=== PATIENT | female | born 1965 | race Hispanic/Latino ===

== ENCOUNTER 2018-10-19 18:09 | Observation (INO) | payer BC ==
[~2018-10-19] VITALS: Ht 152.4 cm; Wt 54.4 kg
[2018-10-19] MEDS ORDERED: SODIUM CHLORIDE 0.9% 1000ML 500 ML IV STA (18:54)
[2018-10-19] MEDS ORDERED: ASPIRIN 81 MG CHEW TAB PO ONE ×2 (18:54→19:30)
[2018-10-19] MEDS ORDERED: SODIUM CHLORIDE 0.9% 1000ML 1,000 ML IV STA (18:54)
[2018-10-19] MEDS ORDERED: METOPROLOL TARTRATE 50 MG TAB PO ONE (19:00)
[2018-10-19] MEDS ORDERED: METOPROLOL TARTRATE INJ 1 MG/ML VIAL IV ONE ×2 (19:00)
[2018-10-19 19:09] LABS: BASOPHILS % 0.3 % (0.0-1.0); EOSINOPHILS # (AUTO) 0.1 (0.0-0.4); EOSINOPHILS % 0.5 % (0.0-6.0); HEMATOCRIT 35.7 % (34.2-44.1); HEMOGLOBIN 11.7 g/dL (12.0-16.0); LYMPHOCYTES # (AUTO) 2.6 (1.0-3.2); LYMPHOCYTES % 22.5 % (18.0-39.1); MEAN CORPUSCULAR HEMOGLOBIN 28.7 pg (28-32); MEAN CORPUSCULAR HGB CONC 32.8 g/dL (31-35); MEAN CORPUSCULAR VOLUME 87.7 fL (81-99); MONOCYTES # (AUTO) 0.5 (0.2-0.8); MONOCYTES % 4.5 % (4.4-11.3); NEUTROPHILS # (AUTO) 8.3 (2.1-6.9); NEUTROPHILS % 71.9 % (38.7-80.0); PLATELET COUNT 306 x10e3/uL (140-360); RED BLOOD COUNT 4.07 x10e6/uL (3.6-5.1); RED CELL DISTRIBUTION WIDTH 13.3 % (11.7-14.4)
[2018-10-19 19:11] LABS: BILIRUBIN,URINE NEGATIVE (NEGATIVE); CLARITY,URINE CLEAR (CLEAR); COLOR,URINE YELLOW (YELLOW); KETONES,URINE 1+ (NEGATIVE); LEUKOCYTE ESTERASE ,URINE SMALL (NEGATIVE); NITRITE,URINE NEGATIVE (NEGATIVE); PROTEIN,URINE DIPSTICK NEGATIVE (NEGATIVE); URINE UROBILINOGEN 0.2 mg/dL (0.2 - 1)
[2018-10-19 19:25] LABS: ALANINE AMINOTRANSFERASE 50 IU/L (0-55); ALBUMIN 4.2 g/dL (3.5-5.0); ALBUMIN/GLOBULIN RATIO 1.4 (0.8-2.0); ALKALINE PHOSPHATASE 95 IU/L (40-150); ANION GAP 18.1 mmol/L (8-16); BLOOD UREA NITROGEN 11 mg/dL (7-26); BUN/CREATININE RATIO 14 (6-25); CALCIUM 9.9 mg/dL (8.4-10.2); CARBON DIOXIDE 23 mmol/L (22-29); CHLORIDE 104 mmol/L (98-107); CREATINE KINASE 42 IU/L (29-168); CREATININE, SERUM 0.77 mg/dL (0.57-1.11); EST GLOMERULAR FILTRATION RATE > 60 ML/MIN (60-); GLUCOSE 179 mg/dL (74-118); LIPASE 83 U/L (8-78); MAGNESIUM 1.8 MG/DL (1.3-2.1); POTASSIUM 4.1 mmol/L (3.5-5.1); SODIUM 141 mmol/L (136-145)
[2018-10-19 19:26] LABS: BACTERIA,URINE MODERATE /HPF; EPITHELIAL CELLS,URINE FEW /LPF; RENAL EPITHELIAL CELLS,URINE RARE
[2018-10-19] MEDS ORDERED: ENOXAPARIN SODIUM INJ 100 MG/ML SYR SC SCH (19:30)
[2018-10-19] MEDS ORDERED: ONDANSETRON HCL INJ 2MG/ML 2ML 2 MG/ML VIAL IV PRN (19:30)
[2018-10-19] MEDS ORDERED: SODIUM CHLORIDE FLUSH 10 ML SYR INJ PRN (19:30)
[2018-10-19] MEDS ORDERED: DEXTROSE 50% SYRINGE 50 ML IV PRN (19:30)
[2018-10-19] MEDS ORDERED: MORPHINE SULFATE 2 MG/ML SYR 1ML IV PRN (19:30)
[2018-10-19 19:34] LABS: INR 0.86; PROTHROMBIN TIME 12.2 seconds (11.9-14.5)
[2018-10-19 19:35] LABS: PARTIAL THROMBOPLASTIN TIME 28.4 seconds (23.8-35.5)
[2018-10-19] MEDS: FAMOTIDINE 20 MG/2 ML VIAL IV SCH (20:05)
[2018-10-19] MEDS ORDERED: LIPITOR20 MG PO (20:11)
[2018-10-19] MEDS: METOPROLOL TARTRATE 25 MG TAB PO SCH (20:15)
--- NOTE | 2018-10-19 20:15 | Diagnostic Imaging Report ---
A single frontal view of the chest. HISTORY: Tachycardia COMPARISON: None available. DISCUSSION: Portable technique, limits sensitivity of the exam. Overlying monitoring leads. Tubes/Lines: None Lungs and pleura: The lungs are well inflated. No evidence of a consolidative pneumonia or pulmonary alveolar edema. No definite pleural effusion or pneumothorax is identified. Heart and mediastinum: The cardiomediastinal silhouette appear(s) unremarkable. Bones and soft tissues: Appear unremarkable, given this limited exam. IMPRESSION: No acute radiographic abnormality. Signed by: Dr. Gerardo Chavarria D.O., M.M.M. on 10/19/2018 8:12 PM
--- OUTSIDE RECORDS SUMMARY | 2018-10-19 20:33 | XMS REPORT ---
Author [facility] Address Unknown Phone Unavailable Care Team Providers Care Elevator Repairer Apprentice Name Role Phone BREA SLATER Unavailable Unavailable Problems This patient has no known problems. Allergies, Adverse Reactions, Alerts This patient has no known allergies or adverse reactions. Medications This patient has no known medications. Results Test Description Test Time Test Comments Text Results Atomic Results Result Comments CHEST SINGLE (PORTABLE) 2018-10-19 20:11:00 [place] [address] Patient Name: ALEXIS DUNLAP MR #: [id number] : 1965 Age/Sex: 53/F Req #: [id number] Adm Physician: Ordered by: BREA SLATER MD, MD Report #: [id number] Location: ER Room/Bed: Procedure: [id number] DX/CHEST SINGLE (PORTABLE) Exam Date: 10/19/18 Exam Time: 1924 REPORT STATUS: Signed A single frontal view of the chest. HISTORY: Tachycardia COMPARISON: None available. DISCUSSION: Portable technique, limits sensitivity of the exam. Overlying monitoring leads. Tubes/Lines: None Lungs and pleura: The lungs are well inflated. No evidence of a consolidative pneumonia or pulmonary alveolar edema. No definite pleural effusion or pneumothorax is identified. Heart and mediastinum: The cardiomediastinal silhouette appear(s) unremarkable. Bones and soft tissues: Appear unremarkable, given this limited exam. IMPRESSION: No acute radiographic abnormality. Signed by: Dr. Kristopher Chavarria D.O., M.M.M. on 10/19/2018 8:12 PM Dictated By: KRISTOPHER CHAVARRIA DO 11 Transcribed By: PITO on 10/19/182011 COPY TO: BREA SLATER
[2018-10-19 20:59] VITALS: BP 137/84
[2018-10-19] MEDS: INSULIN REGULAR, HUMAN 100 UNIT/1 ML 3ML VIAL SQ SCH (21:00)
[2018-10-19] MEDS ORDERED: ENOXAPARIN SOD INJ 40 MG/0.4 ML SYR SC SCH (21:00)
[2018-10-19 21:01] VITALS: BP 137/84
[2018-10-19] MEDS: ENOXAPARIN SOD INJ 60 MG/0.6 ML SYR SC SCH (21:55)
[2018-10-19 22:58] VITALS: BP 137/84
[2018-10-19] MEDS ORDERED: ASPIRIN81 MG (23:53)
[2018-10-19] MEDS ORDERED: BACLOFEN10 MG PO (23:53)
[2018-10-19] MEDS ORDERED: GLYBURIDE-METF1 EAC1 (23:55)
[2018-10-19] MEDS ORDERED: LISINOPRIL2.5 MG PO (23:56)
[2018-10-20] VITALS (8 sets, daily range): BP systolic 130–158; BP diastolic 76–83
--- NOTE | 2018-10-20 05:57 | Diagnostic Imaging Report ---
Examination: Single AP view of the chest. COMPARISON: None. INDICATION: Palpitations, tachycardia DISCUSSION: Lines/tubes: None. Lungs: The lungs are well inflated and clear. There is no evidence of pneumonia or pulmonary edema. Pleura: There is no pleural effusion or pneumothorax. Heart and mediastinum: The heart and the mediastinum are unremarkable. Bones and soft tissues: No acute bony abnormalities. IMPRESSION: 1. No acute cardiopulmonary abnormalities. Signed by: Dr. Kolby Faith M.D. on 10/20/2018 5:54 AM
[2018-10-20 06:26] LABS: BASOPHILS # (AUTO) 0.1 (0.0-0.1); BASOPHILS % 0.7 % (0.0-1.0); EOSINOPHILS # (AUTO) 0.1 (0.0-0.4); EOSINOPHILS % 1.4 % (0.0-6.0); HEMOGLOBIN 10.5 g/dL (12.0-16.0); LYMPHOCYTES # (AUTO) 3.4 (1.0-3.2); LYMPHOCYTES % 40.4 % (18.0-39.1); MEAN CORPUSCULAR HEMOGLOBIN 28.4 pg (28-32); MEAN CORPUSCULAR HGB CONC 31.8 g/dL (31-35); MEAN CORPUSCULAR VOLUME 89.2 fL (81-99); MONOCYTES # (AUTO) 0.5 (0.2-0.8); MONOCYTES % 5.7 % (4.4-11.3); NEUTROPHILS # (AUTO) 4.4 (2.1-6.9); NEUTROPHILS % 51.4 % (38.7-80.0); PLATELET COUNT 276 x10e3/uL (140-360); RED CELL DISTRIBUTION WIDTH 13.5 % (11.7-14.4)
[2018-10-20 07:00] LABS: CREATINE KINASE MB 0.6 ng/mL (0-5.0)
--- NOTE | 2018-10-20 07:00 | NUR ---
BEDSIDE SHIFT REPORT RECEIVED FROM NIGHT RN. PT DENIES NEEDS AT THIS TIME.
[2018-10-20 07:26] LABS: ALANINE AMINOTRANSFERASE 38 IU/L (0-55); ALBUMIN 3.5 g/dL (3.5-5.0); ALBUMIN/GLOBULIN RATIO 1.2 (0.8-2.0); ALKALINE PHOSPHATASE 81 IU/L (40-150); ANION GAP 17.1 mmol/L (8-16); BLOOD UREA NITROGEN 13 mg/dL (7-26); BUN/CREATININE RATIO 19 (6-25); CALCIUM 9.2 mg/dL (8.4-10.2); CARBON DIOXIDE 23 mmol/L (22-29); CHLORIDE 106 mmol/L (98-107); CHOL/HDL RATIO 2.8 (3.0-3.6); CHOLESTEROL 114 MD/DL (0-199); EST GLOMERULAR FILTRATION RATE > 60 ML/MIN (60-); GLUCOSE 122 mg/dL (74-118); HDL CHOLESTEROL 41 MG/DL (40-60); LDL CHOLESTEROL 50 MG/DL (60-130); MAGNESIUM 1.8 MG/DL (1.3-2.1); PHOSPHORUS 4.2 MG/DL (2.3-4.7); POTASSIUM 4.1 mmol/L (3.5-5.1); SODIUM 142 mmol/L (136-145); TRIGLYCERIDES 117 MG/DL (0-149)
[2018-10-20] MEDS: INSULIN REGULAR, HUMAN 100 UNIT/1 ML 3ML VIAL SQ SCH ×4 (07:30→20:43)
[2018-10-20] MEDS: ENOXAPARIN SOD INJ 60 MG/0.6 ML SYR SC SCH ×2 (09:08→20:43)
[2018-10-20] MEDS: FAMOTIDINE 20 MG/2 ML VIAL IV SCH ×2 (09:08→20:43)
[2018-10-20] MEDS: METOPROLOL TARTRATE 25 MG TAB PO SCH ×2 (09:09→20:43)
[2018-10-20] MEDS: ASPIRIN 81 MG ENTERIC COATED PO SCH (09:09)
[2018-10-20] MEDS ORDERED: METOPROLOL TARTRATE 25 MG TAB PO SCH (10:00)
[2018-10-20] MEDS ORDERED: LOSARTAN/HCTZ PO (11:59)
--- NOTE | 2018-10-20 12:26 | Diagnostic Imaging Report ---
CT of the chest, PE protocol, with contrast, 10/20/2018. History: Tachycardia, shortness of breath, palpitations. Comparison: Chest x-ray from today. Technique: Multidetector thin collimation CT scanning of the chest was performed from the level of the apices to the upper abdomen during the pulmonary arterial phase, after intravenous administration of contrast. Coronal and sagittal MIP reformations were obtained. RADIATION DOSE: Total DLP: 499 mGy*cm Dose modulation, iterative reconstruction, and/or weight based adjustment of the mA/kV was utilized to reduce the radiation dose to as low as reasonably achievable. Discussion: Chest: The pulmonary arteries are well-opacified without evidence of filling defect or vessel cut off. The main pulmonary artery is normal in size measuring 2.1 cm in diameter. The heart and aorta are normal in size. Thyroid is unremarkable. There is no axillary or mediastinal adenopathy. There is mild bibasilar dependent atelectasis. No evidence of consolidation, significant nodule, or effusion. Limited evaluation of the upper abdomen shows normal bilateral adrenal glands. Bones and soft tissues: No acute abnormality. Mild degenerative changes are present throughout the thoracic spine. IMPRESSION: No evidence of acute pulmonary embolus or significant pulmonary abnormality. Signed by: Peter Hernandez on 10/20/2018 12:22 PM
--- NOTE | 2018-10-20 12:58 | NUR ---
Nutrition Screen Note RD Recommendation for Physician: - Continue diet as ordered Plan of Care: RD following, monitoring for tolerance and adequacy Nutrition reason for involvement: Nutrition Risk Trigger MST Primary Diagnose(s): palpitation, tachycardia PMH: no H&P in chart Ht: 60in Wt: 120lb BMI: 23.4kg/m2 IBW: 100lb +/- 10% RD Assessment: (10/20) Chart reviewed. Labs and meds reviewed. 53yo F, who was admitted for palpitation. Visited pt in the room. Pt with good appetite and ate 75% of lunch today. Pt denied any nausea or vomiting. Pt denied any chewing or swallowing difficulty. Weight has been stable. Will continue to monitor and follow. Current Diet: ADA 1800 Malnutrition Evaluation (10/20/2018) The patient does not meet criteria for a specified degree of malnutrition at this time. Will re-evaluate at follow-up as appropriate. Diet Education Needs Assessment: Diet education not indicated. Nutrition Care Level: low Signed: Lela Smith, MS, RD, LD
[2018-10-20] MEDS ORDERED: IOPAMIDOL 370 MG/ML 200 ML INFUS..BTL INJ ONE (14:08)
[2018-10-20] MEDS ORDERED: SODIUM CHLORIDE 0.9% 50ML 50 ML ONE (14:08)
[2018-10-20 14:41] LABS: CREATINE KINASE 54 IU/L (29-168)
--- NOTE | 2018-10-20 15:23 | Consultation ---
DATE OF CONSULTATION: Cardiac Consultation REASON FOR CONSULTATION: Tachycardia. 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 It is characterized by spastic voice, spastic gait, and worsening, deteriorating neurological condition. As per patient and her , she does have tachycardia for a long time. They do not know why Dr. France got worried about it. Her heart rate was 120. She was sent to the emergency room, given IV fluids. Her EKG showed sinus tachycardia. The patient is admitted for further management. As per patient, she denied having any chest pain. She does have her usual easy fatigability and shortness of breath on exertion, and she has attributed that to her difficulty walking. She walks with a walker. There is no pleuritic chest pain. There is no swelling of the lower extremity. There is no recent travel. There is no cough. No hemoptysis. REVIEW OF SYSTEMS: Extensive to all systems, will be summarized for clarity. GENERAL: No fever. No chills. No weight loss. No weight gain. HEENT: No vision problem. No hearing problem. PULMONARY: As per acute illness. CARDIAC: No orthopnea. No paroxysmal nocturnal dyspnea. No syncope. No presyncope. Always fast heart rate in the 100s or higher for few years. GI: No hematemesis. No melena. No change in bowel habit. : No hematuria. No dysuria. MUSCULOSKELETAL: Severe spasm. Monotonous speech, "I have bad viral infection affecting my neurological symptoms." She had extensive workup. HEMATOLOGY: No easy bruising or bleeding. ENDOCRINE: The patient is diabetic. SKIN: No new skin rashes or no rashes. SOCIAL HISTORY: She is . She is nonsmoker and non-alcohol drinker. HOME MEDICATIONS: Include: 1. Aspirin 81 mg a day. 2. Lipitor 20 mg a day. 3. Lisinopril 5 mg a day. 4. Glyburide-metformin 5/500 two tablets in the morning, one tablet in the evening. 5. Baclofen 10 mg up to three a day. ALLERGIES: NONE. PAST MEDICAL HISTORY: 1. Hypertension. 2. Diabetes mellitus. 3. Hyperlipidemia. 4. 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 FAMILY HISTORY: Father at age 68, questionable cause of . Mother in her 70s. She was diabetic and toward the end of her life she was bedridden, then she . Four siblings, 2 brothers, 2 sisters, 2 sons, and 1 daughter are all healthy. PHYSICAL EXAMINATION: GENERAL: Well-built lady, in no acute distress. VITAL SIGNS: Height of 5 feet, weight of 120 pounds, blood pressure 140/70, heart rate of 100, respiratory rate of 18, temperature of 97 Fahrenheit. HEENT: Monotonous speech. NECK: No elevation of jugular venous pulsation. No thyromegaly. CHEST: Clear to auscultation and percussion. HEART: PMI 5th left intercostal space. Tachycardia noted. No additional heart murmur. ABDOMEN: Soft with good bowel sounds. No organomegaly. No abdominal bruits. EXTREMITIES: No cyanosis, no clubbing, no edema. NEUROLOGIC: The patient is very spastic, able to move extremities. She does have monotonous voice. LABORATORY DATA: Sodium of 142, potassium 4.1, BUN of 13, creatinine of 0.7, glucose of 122. White blood cell count of 8.4, hemoglobin 10.5, hematocrit 33%. EKG showing sinus tachycardia, rate of 120, inferior Q-wave noted, poor R-wave progression anteriorly. BNP of less than 10. Chest x-ray showed by report, no cardiomegaly. TSH of only 1.29. Lipid profile, triglycerides of 117, cholesterol of 114, HDL of 41, LDL 50. IMPRESSION AND PLAN: 1. Diabetes mellitus. 2. Progressive neurological disorder. 3. Possible hypertension, possible patient on that because she is on lisinopril because of diabetes, but she claims her blood pressure go up when she gets excited. 4. Hyperlipidemia. 5. Tachycardia. As per patient and her that is a chronic problem. As per admission, it is acute. Differential diagnosis is very wide. The patient's heart rate remain at 110-120 after she got IV fluid. She does not look septic. If her problem is chronic, probably it is inappropriate sinus tachycardia, possibly related to her virus infection. She is not clinically in heart failure. Furthermore, her BNP is normal. Her TSH is normal. Cardiac wallace, my recommendation will be to keep the patient on telemetry to do CT scan, PE protocol, to check an echocardiogram. We will stop lisinopril and we will try small dose of beta-roman to see how the patient will tolerate that. Pending on her course, further steps to be done. If her problem is chronic, probably also she needs to visit EP service as an outpatient. We will follow the patient's progression with you and I would like to thank you for the kind referral. MD JENSEN Yin/MODL /[id number]
--- NOTE | 2018-10-20 16:48 | History and Physical ---
PRIMARY CARE DOCTOR: Jermaine France M.D. at [facility] in [place]. CONSULTING PHYSICIAN: Tee Slaughter M.D., Cardiology. CHIEF COMPLAINT: Palpitations. HISTORY OF PRESENT ILLNESS: This is a 53-year-old female with past medical history of hypertension, diabetes, and high cholesterol, presented with complaints of palpitations started last night. She denies any chest pain, fever, chills, nausea, vomiting, abdominal pain, dizziness, or change in LOC. In the ER, she was noted to have a sinus tachycardia on EKG, she was kept on tele monitor and consulted Dr. Slaughter with Cardiology Services to help manage. PAST MEDICAL HISTORY: 1. Hypertension. 2. Diabetes type 2. 3. High cholesterol. 4. Neurological problem that affects her lower extremity muscles. She is unable to tell me what neurological problem. PAST SURGICAL HISTORY: She denies any surgeries in the past. FAMILY MEDICAL HISTORY: Father had heart disease. Mother had diabetes and hypertension. SOCIAL HISTORY: She denies any tobacco, alcohol, or illicit drug use. She lives with family. Uses a walker with ambulation. REVIEW OF SYSTEMS: GENERAL: Alert and awake. HEENT: No mouth sores. LUNGS: No shortness of breath or cough. CARDIOVASCULAR: No chest pain, only palpitations. GI: No abdominal pain, nausea, or vomiting. NEUROLOGIC: No acute distress. Alert and awake. MUSCULOSKELETAL: Lower extremity weakness. PHYSICAL ASSESSMENT: VITAL SIGNS: Temperature 97.1, pulse is 92, blood pressure 143/77, respirations 17, and SpO2 is 98%. GENERAL: Appears in no distress, alert and awake. HEENT: PERRLA. NECK: Supple. LUNGS: Clear to auscultation. CARDIOVASCULAR: Rate and rhythm are within normal limits. GI: Abdomen is soft and nontender. NEUROLOGIC: Alert, awake, and oriented x3. MUSCULOSKELETAL: Weakness in the lower extremities, progressively worsening. LABORATORY DATA: Reviewed and noted. Troponins are negative. Electrolytes within normal limits. TSH 1.2. Chest x-ray is unremarkable. Echo was done, preliminary report shows a 60% to 65% EF. IMPRESSION: 1. Sinus tachycardia with palpitations. 2. Hypertension. 3. Diabetes. 4. High cholesterol. PLAN: We will continue trending her troponin, so far negative, we will continue to monitor her on telemetry, she was started on metoprolol 25 mg every 12 hours and discontinue the EUGENIA inhibitors, lisinopril that she was taking at home. We will continue Accu-Cheks before meals and at bedtime with sliding scale insulin. Further recommendations to follow. Dictated by MALGORZATA Macdonald Annyching MD CHUN Galloway/MODL /[id number]
[2018-10-20] MEDS: LISINOPRIL 2.5 MG TAB PO SCH (17:45)
--- NOTE | 2018-10-20 19:09 | NUR ---
WALKING ROUNDS PERFORMED, RECEIVED PT LAYING SEMI FOWLERS IN BED, AAOX3, RR EVEN AND NON-LABORED, ON ROOM AIR. NO S/SX OF DISTRESS NOTED. LEFT PT LAYING SEMI FOWLERS IN BED, BED IN LOW LOCKED POSITION, SIDE RAILS UPX2, CALL LIGHT AND PHONE WITHIN REACH.
--- NOTE | 2018-10-20 19:16 | NUR ---
Bedside report given to night nurse. No c/o of pain or signs of distress. Family at bedside. Bed locked and in low position, call light placed within reach.
[2018-10-20] MEDS ORDERED: ATORVASTATIN 20 MG TAB PO SCH (21:00)
[2018-10-21] VITALS: BP 146/76
[2018-10-21 03:57] VITALS: BP 126/78
--- NOTE | 2018-10-21 07:00 | NUR ---
bedside shift report received pt in stable conditions, r ac 20g sl no ss of infiltration noted, updated on poc voiced understanding, denies pain at this time, call light in reach will continue ot monitor
[2018-10-21] MEDS: INSULIN REGULAR, HUMAN 100 UNIT/1 ML 3ML VIAL SQ SCH ×2 (07:30→12:42)
[2018-10-21 07:46] VITALS: BP 155/89
[2018-10-21 08:54] VITALS: BP 155/89
[2018-10-21] MEDS: METOPROLOL TARTRATE 25 MG TAB PO SCH (09:15)
[2018-10-21] MEDS: ENOXAPARIN SOD INJ 60 MG/0.6 ML SYR SC SCH (09:15)
[2018-10-21] MEDS: FAMOTIDINE 20 MG/2 ML VIAL IV SCH (09:15)
[2018-10-21] MEDS: ASPIRIN 81 MG ENTERIC COATED PO SCH (09:15)
[2018-10-21] MEDS: LISINOPRIL 2.5 MG TAB PO SCH (09:15)
[2018-10-21 12:14] VITALS: BP 147/83
[2018-10-21] MEDS ORDERED: METOPROLOL TART25 MG PO (13:23)
--- NOTE | 2018-10-21 19:59 | Discharge Summary ---
PRIMARY CARE PHYSICIAN: Dr. Jermaine France at [facility]. FINAL DISCHARGE DIAGNOSES: 1. Sinus tachycardia, now normal sinus rhythm. 2. History of hypertension. 3. High cholesterol. 4. Diabetes. 5. Chronic neurological problem. CONSULTING PHYSICIAN: Dr. eTe Slaughter with Cardiology. PROCEDURES DONE: Imaging, chest x-ray was unremarkable. CT chest ruled out PE. Echocardiogram with EF of 60% to 65%. HISTORY: Per H and P. HOSPITAL COURSE: This is a 53-year-old woman, who presented with palpitations with a heart rate of 120s. She was kept on telemetry monitoring and started on beta blockers, which seemed to help her palpitations and is now in normal sinus rhythm. Cardiology was consulted. Echocardiogram with normal EF of 60% to 65% and beta blockers recommended, thyroid profile was negative. All imaging has been negative. We will discharge home on metoprolol 25 b.i.d. and follow up with Cardiology and PCP for Holter monitor and further workup. PHYSICAL EXAMINATION: VITAL SIGNS: Temperature 96.5, pulse is 90, blood pressure is 147/83, respirations 16, and SpO2 is 100%. GENERAL: She is alert, awake, and oriented x3. NECK: Supple. LUNGS: Clear to auscultation. CARDIOVASCULAR: Normal rate and rhythm. ABDOMEN: Soft and nontender. Normal bowel sounds heard. EXTREMITIES: Weakness noted in the lower extremities, which is chronic. NEUROLOGICAL: Alert, awake, and oriented x3. CONDITION AT DISCHARGE: Improved and no chest pain. DISCHARGE MEDICATIONS: Please see medication reconciliation list. FOLLOWUP: Follow up with Dr. Slaughter, sprinkling system installer and PCP, Dr. Jermaine France at [facility]. Dictated by MALGORZATA Macdonald Dakota Hernandez MD MY/MODL /[id number] cc: Jermaine France MD
== END 2018-10-21 14:56 | disposition home or self-care (01) ==
LOC: ER 18:09 → INTOOBSV 19:26 → ERHOLD 19:26 → MED/SURG 20:31
PROVIDERS: ADMIT Internal Medicine; ATTEND Internal Medicine
DX: R00.0 Tachycardia, unspecified (principal); I10 Essential (primary) hypertension; E78.00 Pure hypercholesterolemia, unspecified; E11.8 Type 2 diabetes mellitus with unspecified complications; Z79.4 Long term (current) use of insulin; R29.90 Unspecified symptoms and signs involving the nervous system; E78.5 Hyperlipidemia, unspecified
CPT/HCPCS: 36415 ×3; 71045 ×2; 71260; 80053 ×2; 80061; 81001; 82550 ×2; 82553 ×2; 82948 ×3; 83690; 83735 ×2; 83880; 84100; 84443; 84484 ×2; 85025 ×2; 85610; 85730; 93005; 93306; 99284; G0378 ×3; J1650 ×3; Q9967